=== PATIENT | male | born 2000 | race Hispanic/Latino ===

== ENCOUNTER → 2025-02-17 | Outpatient (CLI) | payer MEDICARE ==
--- NOTE | 2025-02-18 12:15 | HMCIMG ---
EXAM: CT Abdomen without IV contrast CLINICAL HISTORY: Unspecified abdominal pain TECHNIQUE: Axial computed tomography images of the abdomen without intravenous contrast. CONTRAST: None. COMPARISON: None provided. FINDINGS: LUNG BASES: The lung bases appear clear. No pleural effusions are seen. LIVER: Unremarkable. GALLBLADDER AND BILE DUCTS: The gallbladder appears within normal limits. No radiopaque gallstones are seen. No biliary ductal dilatation is evident. PANCREAS: Unremarkable. SPLEEN: Unremarkable. ADRENAL GLANDS: Unremarkable. KIDNEYS and VISUALIZED URETERS: The kidneys appear within normal limits. There is no hydronephrosis or hydroureter. No urinary calculi. STOMACH AND VISUALIZED BOWEL: Unremarkable appearance of the stomach and bowel. No evidence of bowel obstruction. No evidence suggesting enteritis or colitis. APPENDIX: Not imaged. PERITONEUM: No free fluid. No free air. LYMPH NODES: No lymphadenopathy is evident. VASCULATURE: No evidence of abdominal aortic aneurysm. BONES: No aggressive appearing osseous lesion. No acute osseous pathology evident. SOFT TISSUE: Unremarkable. IMPRESSION: Please note that the pelvis was not imaged as only a CT of the abdomen was ordered. No acute intra-abdominal abnormality. /[place]
== END | disposition home or self-care (01) ==
LOC: RAH 13:36
PROVIDERS: ATTEND Internal Medicine Gastroenterology
DX: R10.9 Unspecified abdominal pain (principal)
CPT/HCPCS: 74150